=== PATIENT | female | born 1950 | race Caucasian/White ===

== ENCOUNTER 2017-11-02 17:03 | Inpatient (IN) | payer OTHER ==
[2017-11-02] VITALS (7 sets, daily range): BP systolic 130–219; BP diastolic 58–104
[~2017-11-02] VITALS: Ht 165.1 cm; Wt 81.2 kg
[~2017-11-02 17:03] MED LIST: ADDERALL 30 MG30 MG; ANASPAZ0.125 MG SL; ASPIRIN325 PO; ATIVAN1 MG PO; BACTRIM DS TAB1 EACH PO; CYMBALTA60 MG; EXCEDRIN CAPLE1 EACH PO; GEODON40 MG PO; IBUPROFEN 400400 M2 PO; IMITREX 25 MG T25 MG; IMITREX4 MG/0.51 SQ; LAMICTAL 25 MG25 MG; NEXIUM40 MG; NEXIUM40 MG PO; NORCO 5-325 TA1 EACH PO; PERCOCET 5-3251 EACH PO; TUMS PO; VALIUM10 MG PO; XANAX XR1 MG
[2017-11-02 17:30] LABS: HEMATOCRIT 36.9 % (37.0-47.0); HEMOGLOBIN 10.9 gm/dL (12.0-15.0); MCHC 29.6 g/dL (28.0-37.0); MCV 87.8 fL (80.0-100.0); MPV 7.8 fl. (7.2-11.1); NUCLEATED RBCS 0 /100WBC; PLATELET COUNT* 576 thou/uL (150-400); RDW-CV 16.7 % (10.5-14.5); WBC 11.1 thou/uL (4.0-11.0)
[2017-11-02 17:40] LABS: APTT 25.6 Seconds (25.0-31.3); PROTIME 9.9 Seconds (9.20-11.50)
[2017-11-02 17:45] LABS: CALCIUM 9.7 mg/dL (8.5-10.1); CREATININE 0.8 mg/dL (0.6-1.3); POTASSIUM 3.3 mmol/L (3.5-5.1)
[2017-11-02 17:51] LABS: TOTAL BILIRUBIN 0.4 mg/dL (<0.1-1.0); TOTAL PROTEIN 7.9 g/dL (6.4-8.2); TROPONIN-I LEVEL 0.15 ng/mL (<0.06)
[2017-11-02 18:05] LABS: ABSOLUTE BASOPHILS 0.1 thou/uL (0.0-0.2); ABSOLUTE LYMPHOCYTES 1.8 thou/uL (0.8-5.3); ABSOLUTE MONOCYTES 0.6 thou/uL (0.0-1.2); ABSOLUTE NEUTROPHILS 8.7 thou/uL (1.6-8.1)
[2017-11-02 18:06] LABS: PLATELET ESTIMATE INCREASED
[2017-11-03] VITALS (12 sets, daily range): BP systolic 123–163; BP diastolic 45–83
[2017-11-03 05:19] LABS: HEMATOCRIT 28.9 % (37.0-47.0); HEMOGLOBIN 9.5 gm/dL (12.0-15.0); MCH 26.1 pg (26.0-34.0); MCHC 32.9 g/dL (28.0-37.0); MPV 6.9 fl. (7.2-11.1); RBC 3.64 mil/uL (4.20-5.00); RDW-CV 16.3 % (10.5-14.5); WBC 7.6 thou/uL (4.0-11.0)
[2017-11-03 05:24] LABS: MCV 79.4 fL (80.0-100.0)
[2017-11-03 05:26] LABS: APTT 26.8 Seconds (25.0-31.3); PROTIME 10.2 Seconds (9.20-11.50)
[2017-11-03 05:36] LABS: ANION GAP 5 mmol/L (7-16); BUN 9 mg/dL (7-18); CALCIUM 9.2 mg/dL (8.5-10.1); CHLORIDE 103 mmol/L (98-107); CO2 31 mmol/L (21-32); CREATININE 0.6 mg/dL (0.6-1.3); GLUCOSE 108 mg/dL (70-99); POTASSIUM 3.3 mmol/L (3.5-5.1); SODIUM 139 mmol/L (136-145)
[2017-11-03 05:54] LABS: CHOLESTEROL 171 mg/dL (<200); SERUM ASSESSMENT Clear
[2017-11-03 05:55] LABS: HDL CHOLESTEROL 63 mg/dL (>40); LDL CHOLESTEROL 94 mg/dL (<100); TC:HDL 2.7 Ratio (Not establshd); TRIGLYCERIDE 71 mg/dL (<150); VLDL 14 mg/dL (<40)
--- NOTE | 2017-11-03 14:34 | CARD ---
[address] [address] CARDIAC CATH REPORT Name: KYE BORJA Jd Room: [address] IN ..#: [id number] Admission: 11/02/17 Attend Phys: Eloisa Mcnair Discharge: Date of : 46 Report #: [id number] THIS REPORT FOR: //name// APPROVED REPORT Patient Details Patient Status: In-Patient Room #: The patient is a 66 year-old female Event Personnel Vel De Luna Glass Beveler, Anh Spencer RN RN, Samaria De La Rosa RTR Monitor, Doug Guardado Scrub Procedures Performed Art Access - R femoral artery* Left Heart Cath w/or w/o Coronaries [id number] [facility] Hemostasis w/ Mynx Indication Abnormal ECG, Chest pain Risk Factors Arterial Hypertension Admission/Lab Medications/Medications given during procedure Lasix (Furosemide) IV 40 ml Procedure Narrative The patient was brought emergently to the Cardiac Catheterization Laboratory and was prepped and draped in a sterile manner. The right femoral was infiltrated with 1% Lidocaine subcutaneous anesthesia. A 6fr Ultimum Sheath sheath was inserted into the right femoral artery. Coronary angiography was performed using coronary diagnostic catheters. The right coronary system was accessed and visualized with a 6FR JR4 catheter. The left coronary system was accessed and visualized with a DFR XG1njbkmbftg catheter. The left ventricle was accessed and visualized with a fr Pigtail catheter. Left ventricular/Aortic Valve gradient assessed via catheter pullback. Left ventriculogram was performed in PERES projection. Closure device was deployed with a 6 Fr Mynx. The patient tolerated the procedure well and there were no complications associated with the procedure. There was no hematoma. Intraoperative Conscious Sedation [place] [address] CARDIAC CATH REPORT Name: KYE BORJA Room: [address] IN [facility]#: [id number] Admission: 11/02/17 Attend Phys: Eloisa Mcnair Discharge: Date of : 46 Report #: [id number] Fluoro Time: 1.3 minutes Dose: DAP 10422 cGycm2 502 mGy Contrast Type and Amount: Visipaque 100 ml Coronary Angiography The patient's coronary anatomy is co- dominant. [place] Artery Percent Stenosis Left Main: 0 % Prox LAD: 0 % Mid/Distal LAD: 0 % Circumflex: 0 % RCA: 0 % Ramus: % Left Ventriculography The left ventricle is moderately dilated in size with contractility. The left ventricular ejection fraction is estimated to be 15-20%. There is 1+ mitral insufficiency. Hemodynamics The aortic pressure is 144/86 mmHg with a mean of 108 mmHg. The left ventricular pressure is 153/19 mmHg with a mean of mmHg. The left ventricular end diastolic pressure is 30 mmHg. There was no gradient across the aortic valve upon pullback. Pullback from the left ventricle to the aorta revealed no gradient across the aortic valve. Conclusion 1. nonischemic cardiomyopathy Recommendations Cardiac Rehabilitation Referral <ELECTRONICALLY SIGNED> By: Vel De Luna MD, FACC 11/03/17 1433 1433 [id number] De Luna MD, FAC /INF
--- NOTE | 2017-11-03 16:35 | EKG ---
[place] [address] ELECTROCARDIOGRAM REPORT Name: KYE BORJA Room: [address] ADM IN M.R.#: [id number] Admission: 11/02/17 Attend Phys: Eloisa Mcnair Discharge: Date of : 46 Report #: [id number] THIS REPORT FOR: //name// [facility] ED Test Date: 2017-11-02 Test Time: 17:13:14 Pat Name: KYE BORJA Department: Room: [facility] Gender: F Glass Glazier: MINA : 1950 Requested By: Azul Ayers Order Number: [id number] MD: Vel De Luna Measurements Intervals [place] Rate: 125 P: 70 [place]: 139 QRS: 27 QRSD: 102 T: 240 QT: 317 QTc: 458 Interpretive Statements Sinus tachycardia Probable left atrial enlargement LVH with secondary repolarization abnormality Compared to ECG 08/14/2017 11:59:06 Sinus rhythm no longer present Electronically Signed On 11-03-2017 16:35:44 [employer] by Vel De Luna [email or web address] <ELECTRONICALLY SIGNED> By: Vel De Luna MD, [facility] 11/03/17 1635 1713 1713 Vel De Luna MD, [facility] /EPI
--- NOTE | 2017-11-03 17:09 | CON ---
[address] [address] CONSULTATION Name: KYE BORJA Room: [address] IN M.R.#: [id number] Admission: 11/02/17 Attend Phys: Eloisa Mcnair Discharge: Date of : 46 Report #: [id number] THIS REPORT FOR: //name// CC: Morgan Waters DATE OF SERVICE: 11/02/2017 PRIMARY CARE PHYSICIAN: Dr. Morgan Beard. HISTORY OF PRESENT ILLNESS: The patient is a 66-year-old white female who I was asked to see in the Emergency Room after she complained of chest pain. The patient has no previous history of heart disease. Most of the history is obtained from the patient's who was present. The patient is currently lying on a stretcher with eyes closed. She will answer questions. The patient has had multiple Emergency Room visits here at [facility]. Reviewing the record, she was here in August with vomiting. She was here last March with diarrhea. She was here in 2013 with wrist pain. Recently, the patient's blood pressure has been elevated. She was given lisinopril by her primary care physician that made her nauseated. Today, the patient apparently was complaining of chest pain. She felt somewhat short of breath. According to the , she was confused. He brought her to the Emergency Room. She is known to have an abnormal ECG and I was asked to see her on an emergent basis. PAST MEDICAL HISTORY: Otherwise significant for bilateral knee replacements, hypertension. She has a history of depression. She has been hospitalized twice over the past couple of years for depression at a [facility]. MEDICATIONS: She is on multiple psychiatric medications. ALLERGIES: She has no known drug allergies. FAMILY HISTORY: Negative for heart disease. SOCIAL HISTORY: She is . She and her live in [place]. No smoking or alcohol abuse. REVIEW OF SYSTEMS: She has had no history of stroke or asthma. She has had a bleeding esophagus in the past. No history of liver disease, kidney disease or cancer. PHYSICAL EXAMINATION: GENERAL: Revealed a middle-aged female lying in a stretcher. She was in moderate distress. VITAL SIGNS: She had a blood pressure of 200/90, pulse is 90 [place] [address] CONSULTATION Name: KYE BORJA Room: [address]#: [id number] Admission: 11/02/17 Attend Phys: Eloisa Mcnair Discharge: Date of : 46 Report #: [id number] afebrile. HEENT: She was anicteric. Conjunctivae pink. Mucous membranes are moist. NECK: Veins do not appear distended. CHEST: Clear to auscultation. CARDIAC: Regular rate and rhythm. ABDOMEN: Soft. EXTREMITIES: Had no edema. Dorsalis pedis pulse 2+ bilaterally. SKIN: Cool and dry. NEUROLOGICAL: Nonfocal. RADIOLOGICAL DATA: ECG shows a sinus tachycardia. There is a left ventricular hypertrophy, repolarization changes. There did appear to be ST-segment elevation up to 3 mm in V1, V2 and V3. LABORATORY DATA: There is no lab work or x-rays available at this time. IMPRESSION AND RECOMMENDATIONS: 1. Possible anterior HM-amcknxz-ltrtbzprj myocardial infarction. Recommend cardiac catheterization. 2. Hypertension. The patient recently prescribed lisinopril, which she did not take because nausea. 3. History of depression. 4. History of upper gastrointestinal bleed. <ELECTRONICALLY SIGNED> By: Vel De Luna MD, FACC 11/03/17 1709 1740 [id number] De Luna MD, FACC /nt
[2017-11-04] VITALS: BP 160/81
[2017-11-04 01:10] LABS: INFLUENZA A ANTIGEN None Detected (None Detect); INFLUENZA B ANTIGEN None Detected (None Detect)
[2017-11-04 04:00] VITALS: BP 135/90
[2017-11-04 05:27] LABS: CALCIUM 9.6 mg/dL (8.5-10.1); CREATININE 0.7 mg/dL (0.6-1.3); POTASSIUM 4.1 mmol/L (3.5-5.1)
[2017-11-04 05:35] LABS: % SATURATION 4 % (20-39); IRON 18 ug/dL (50-175)
[2017-11-04 07:30] VITALS: BP 139/81
[2017-11-04 11:33] VITALS: BP 144/61
[2017-11-04] MEDS ORDERED: COZAAR 50 MG TA50 M1 PO (12:56)
[2017-11-04] MEDS ORDERED: ALDACTONE25 MG PO (12:56)
[2017-11-04] MEDS ORDERED: CARVEDILOL3.125 MG PO (12:56)
--- NOTE | 2017-11-11 16:13 | CON ---
[address] [address] CONSULTATION Name: KYE BORJA Room: [address] IN M.R.#: [id number] Admission: 11/02/17 Attend Phys: Eloisa Mcnair Discharge: 11/04/17 Date of : 46 Report #: [id number] THIS REPORT FOR: //name// CC: Morgan Waters DICTATED BY: Sarahi Huang [facility] DATE OF SERVICE: 11/03/2017 PRIMARY CARE PHYSICIAN: Morgan Sow M.D. Please note at the time of this dictation, the patient was seen and physically examined by myself. REASON FOR CONSULTATION: History of gastric ulcer. HISTORY OF PRESENT ILLNESS: This is a 66-year-old female who presented to the emergency room with ongoing chest pain that apparently started the night before admission and she was unable to sleep. She continued to have pain throughout the entire day causing her more confusion. It was noted she had a mild elevation of her troponin and concern on her EKG and she was taken to the clinical lab technologist, which was essentially negative. Cardiology has deemed that it was noncardiac in origin. At the time that the patient is seen, she is not complaining of any chest discomfort or any difficulty with swallowing, mainly just a headache. The patient did have an EGD back in June [address] [facility] and had esophagitis. We had seen her back in 2011 for esophagitis and she had a healed gastric ulcer that had a clean base, small hiatal hernia and a colonoscopy at that time that showed diverticula, nonbleeding hemorrhoids and some microscopic colitis. The patient states that her bowels move daily, soft and formed and she is not having any issues with those. Her weight has been stable and she denies any difficulty with swallowing or any pain with swallowing. ALLERGIES: COMPAZINE AND TIGAN. MEDICATIONS: From home include Nexium, Geodon, Valium, aspirin, Motrin, Imitrex, Excedrin, hyoscyamine and Tums. PAST MEDICAL HISTORY: Depression, history of migraines, GERD and her gastric ulcer. PAST SURGICAL HISTORY: Knee surgery, bilateral knee replacement, cholecystectomy [place] [address] CONSULTATION Name: KYE BORJA Jd Room: [address]#: [id number] Admission: 11/02/17 Attend Phys: Eloisa Mcnair Discharge: 11/04/17 Date of : 46 Report #: [id number] FAMILY HISTORY: Negative for any GI or female cancers. SOCIAL HISTORY: Lives with her . Denies any alcohol, tobacco or illegal drug use. REVIEW OF SYSTEMS: 12-point review of systems is essentially negative except what is mentioned in the HPI. PHYSICAL EXAMINATION: VITAL SIGNS: Temperature 36.7, pulse 85, respirations 18, blood pressure 143/70. HEART: Regular rate and rhythm. LUNGS: Clear. ABDOMEN: Soft, positive bowel sounds in all 4 quadrants with no masses or tenderness noted. LABORATORY DATA: Hemoglobin 9.5, hematocrit 28.9, white count is 7.6, platelets 450. PT is 10.9, INR is 1. Sodium 139, potassium 3.3, chloride 103, CO2 of 31, BUN is 9, creatinine 0.6, GFR is 99, glucose is 108. Her TSH is low at 0.3, total bilirubin is 0.4, alkaline phosphatase 189, ALT 37, AST 29. IMPRESSION: 1. Noncardiac chest pain, resolved. 2. Anemia. 3. History of esophagitis and history of a gastric ulcer in 2011 and 2015. PLAN: 1. Continue her Protonix b.i.d. 2. Await labs that are pending, iron studies, ferritin and B12. 3. We will continue to follow and make further recommendations once the above labs have been noted. Thank you for allowing us to participate in this patient's care. Please do not hesitate to call with any questions in regard to this consult. ADDENDUM I have personally seen and examined the patient and reviewed labs and imaging studies. The patient with noncardiac chest pain and anemia, who has history of peptic ulcer disease and esophagitis. [place] [address] CONSULTATION Name: KYE BORJA Room: [address] IN M.R.#: [id number] Admission: 11/02/17 Attend Phys: Eloisa Mcnair Discharge: 11/04/17 Date of : 46 Report #: [id number] We will continue to monitor her hemoglobin and consider upper endoscopy tomorrow. At some point, he will need a colonoscopy as well. <ELECTRONICALLY SIGNED> By: Jose J Alvarez MD 11/11/17 1613 1247 1425Jose J Alvarez MD /nt
--- NOTE | 2017-11-11 16:13 | CON ---
[address] [address] CONSULTATION Name: KYE BORJA Room: [address] IN M.R.#: [id number] Admission: 11/02/17 Attend Phys: Eloisa Mcnair Discharge: 11/04/17 Date of : 46 Report #: [id number] THIS REPORT FOR: //name// CC: Morgan Waters DATE OF SERVICE: 11/03/2017 ADDENDUM TO CONSULTATION CONSULTATION NUMBER: [id number]. I have personally seen and examined the patient and reviewed labs and imaging studies. The patient with noncardiac chest pain and anemia, who has history of peptic ulcer disease and esophagitis. She is currently on double dose of PPI. We will continue to monitor her hemoglobin and consider upper endoscopy tomorrow. At some point, he will need a colonoscopy as well. <ELECTRONICALLY SIGNED> By: Jose J Alvarez MD 11/11/17 1613 1540 [id number] J Alvarez MD /nt
== END 2017-11-04 16:00 | disposition home or self-care (01) | DRG 286 ==
LOC: M.ERS 17:03 → M.ICU 17:48 → M.TBA-CV 17:48 → M.ICU 18:45 → M.2W 11-03 16:00
PROVIDERS: Internal Medicine; Internal Medicine Cardiovascular Disease; Personal Emergency Response Attendant; ADMIT Internal Medicine
PROC: B2151ZZ Fluoroscopy of Left Heart using Low Osmolar Contrast (ICD-10-PCS; principal; 2017-11-02)
PROC: B2111ZZ Fluoroscopy of Multiple Coronary Arteries using Low Osmolar Contrast (ICD-10-PCS; principal; 2017-11-02)
PROC: 4A023N7 Measurement of Cardiac Sampling and Pressure, Left Heart, Percutaneous Approach (ICD-10-PCS; principal; 2017-11-02)
DX: R07.9 Chest pain, unspecified (principal); I50.21 Acute systolic (congestive) heart failure; I42.8 Other cardiomyopathies; K29.70 Gastritis, unspecified, without bleeding; F32.9 Major depressive disorder, single episode, unspecified; Z96.653 Presence of artificial knee joint, bilateral; G43.909 Migraine, unspecified, not intractable, without status migrainosus; K21.9 Gastro-esophageal reflux disease without esophagitis; D64.9 Anemia, unspecified; I11.0 Hypertensive heart disease with heart failure; F41.9 Anxiety disorder, unspecified; Z90.49 Acquired absence of other specified parts of digestive tract; Z79.82 Long term (current) use of aspirin; Z79.899 Other long term (current) drug therapy; Z88.6 Allergy status to analgesic agent; Z88.8 Allergy status to other drugs, medicaments and biological substances